=== PATIENT | female | born 1950 | race Caucasian/White ===

== ENCOUNTER → 2020-06-23 15:42 | Outpatient (CLI) | payer MEDICARE, OTHER, SELFPAY ==
--- NOTE | 2020-06-23 15:47 | DI.MRI.S_ITS ---
PROCEDURE: MR KNEE RT WO CON INDICATIONS: Unilateral primary osteoarthritis, right knee. RIGHT KNEE PAIN TECHNIQUE: Noncontrast sagittal PD fast spin echo and T2 fast spin echo with fat saturation, sagittal 3-D FLASH with fat saturation; coronal T1 spin echo and PD fast spin echo with fat saturation, and axial PD fast spin echo with fat saturation through the knee. COMPARISON: [facility], CR, XR KNEE 1 OR 2 VIEWS RIGHT, 04/12/2020, 11:01. [facility], CR, XR KNEE STANDING BILATERAL, 06/14/2020, 11:09. FINDINGS: Image quality: Excellent. Menisci: Vertically oriented linear high T2 signal intensity traverses the posterior horn medial meniscus, demonstrating superior and inferior articular surface extension. Amorphous high signal intensity within the medial meniscal body is present demonstrating inferior articular surface extension. Linear horizontally oriented high T2 signal intensity traverses the posterior horn lateral meniscus, demonstrating inferior articular surface extension. Cruciate ligaments: The anterior and posterior cruciate ligaments appear intact. Medial structures: The medial collateral ligament appears intact. Visualized portions of the pes anserinus tendons appear normal. No abnormal bursal fluid. Lateral structures: The lateral collateral ligament, long and short heads of the biceps femoris tendon appear intact. The popliteus tendon appears normal. Iliotibial band appears normal. Anterior structures: The quadriceps and patellar tendons appear intact. Patellar alignment is normal. No femoral trochlear dysplasia or ventral trochlear prominence. No edema in the infrapatellar fat pad. Bones and cartilage: No bone marrow contusions or fractures. Mild tricompartmental periarticular osteophyte formation. Moderate articular cartilage loss diffusely overlies the weight-bearing aspects of the medial femoral condyle and medial tibial plateau. Mild articular cartilage loss diffusely overlies the weight-bearing aspects of the lateral femoral condyle and lateral tibial plateau. Moderate articular cartilage loss overlies the patellar apex as well as the adjacent aspects of the medial and lateral patellar facets. Joint space: There is a small knee joint effusion and a trace Valdez's cyst. Normal appearing synovial plicae are incidentally noted. IMPRESSION: 1. Medial and lateral meniscal tearing. 2. Tricompartmental osteoarthritis with associated articular cartilage loss. 3. Small knee joint effusion and trace Valdez's cyst. Dictated by: Amy Pritchett M.D. on 06/23/2020 at 16:39 Approved by: Amy Pritchett M.D. on 06/23/2020 at 16:41
== END ==
PROVIDERS: PCP Family Medicine; Referring Provider Orthopaedic Surgery; Visit Provider Orthopaedic Surgery
DX: M17.11 Unilateral primary osteoarthritis, right knee (principal); S83.241A Other tear of medial meniscus, current injury, right knee, initial encounter; S83.281A Other tear of lateral meniscus, current injury, right knee, initial encounter; M25.461 Effusion, right knee
CPT/HCPCS: 73721

== ENCOUNTER → 2025-02-20 11:43 | Outpatient (CLI) | payer MEDICARE, OTHER, SELFPAY ==
[2025-02-20 12:54] LABS: Alanine Aminotransferase 25 IU/L (<35); Albumin 4.1 g/dL (3.5-5.0); Albumin Globulin Ratio 1.6 (1.0-2.8); Alkaline Phosphatase 85 U/L (38-126); Blood Urea Nitrogen 21 mg/dL (7-17); Calcium 9.5 mg/dL (8.4-10.2); Carbon Dioxide 29 mmol/L (22-32); Chloride 102 mmol/L (98-107); Cholesterol 174 mg/dL (140-199); Estimated Glomerular Filt Rate > 60 mL/min (>60); Globulin 2.6 g/dL (1.7-4.1); Glucose 81 mg/dL (70-99); HDL Cholesterol 58 mg/dL (40-60); HEMOLYSIS < 15 (0-50); Potassium 4.7 mmol/L (3.4-5.1); Sodium 139 mmol/L (137-145); Total Protein 6.7 g/dL (6.3-8.2); Triglycerides 52 mg/dL (35-150)
== END ==
PROVIDERS: PCP Family Medicine; Referring Provider Family Medicine; Visit Provider Family Medicine
DX: Z13.9 Encounter for screening, unspecified (principal); Z85.43 Personal history of malignant neoplasm of ovary; Z13.220 Encounter for screening for lipoid disorders
CPT/HCPCS: 36415; 80053; 80061; 86304

== ENCOUNTER 2025-03-03 14:17 | Emergency (ER) | payer MEDICARE, OTHER, SELFPAY ==
[2025-03-03] VITALS (10 sets, daily range): BP systolic 127–153; BP diastolic 67–81; PULSE 65–83; RESP 16–36; TEMP 36.9; O2SAT 96–100; BMI 25.2
--- NOTE | 2025-03-03 15:33 | ED.GENADULT ---
HPI - General Adult General Chief complaint: Abdominal Pain Stated complaint: Constipated for 14 days Time Seen by Provider: 03/03/25 14:20 Source: patient Mode of arrival: Ambulatory History of Present Illness HPI narrative: 74-year-old woman with a history of constipation has not had a significant bowel movement in 14 days increasing 5 lb of weight, abdominal distention. Symptoms seemed to worsen around June of this year to was taking Dulcolax daily and having modest bowel movements, she was seen to establish care with a primary care physician on February 20 recommendation was to change to MiraLax which she has been doing, 1 cap full b.i.d.. She finds that this is not been helpful. She feels that she is full but ?can not quite push it out? does not not feel like she has hard stool in her rectum. She notes that she has exacerbated a chronic hemorrhoid and is having some bleeding when small amounts of stool do pass. No nausea or vomiting. No change to medications. She notes that she tries to limit her caloric intake to 1500 calories because ?I am so short?. She does try to exercise, appropriate volumes of fluid, most recent colonoscopy was 3-[address] [facility] and she was told she did not need any further colonoscopies. Related Data Home Medications ?Medication ?Instructions ?Recorded ?Confirmed alendronate 70 mg tablet (Fosamax) 70 mg PO QWEEK ##0 09/17/17 02/20/25 cetirizine 10 mg tablet 10 mg PO QDAYP PRN ##0 09/17/17 02/20/25 triamterene 37.5 1 tab PO QDAY ##0 09/17/17 02/20/25 mg-hydrochlorothiazide 25 mg tablet citalopram 20 mg tablet 20 mg PO DAILY 02/20/25 02/20/25 phendimetrazine tartrate 35 mg 35 mg PO TID Appetite suppressant 02/20/25 02/20/25 tablet weight lo potassium chloride 10 mEq 10 meq PO BID Consistently low 02/20/25 02/20/25 tablet,extended release potassium Previous Rx's ?Medication ?Instructions ?Recorded linaclotide 72 mcg capsule 72 mcg PO DAILY #30 caps 03/03/25 (Linzess) peg 3350-electrolytes 236 240 ml PO Q10M #4,000 mL 03/03/25 gram-22.74 gram-6.74 gram-5.86 gram solution Allergies Allergy/AdvReac Type Severity Reaction Status Date / Time ampicillin (AMPICILLIN) Allergy Unknown Verified 03/03/25 15:09 azithromycin (From ZITHROMAX) Allergy Unknown Verified 03/03/25 15:09 hydrocodone (From VICODIN) Allergy Unknown Verified 03/03/25 15:09 prochlorperazine (From Allergy Unknown Verified 03/03/25 15:09 COMPAZINE) acetaminophen (From Vicodin) AdvReac Verified 03/03/25 15:09 Patient History Medical History (Updated 03/03/25 @ 19:18 by Palak Astorga MD) Insomnia Hx of ovarian cancer Osteoporosis Depression (02/16/79) Carpal tunnel syndrome Surgical History (Updated 02/24/25 @ 08:52 by Kierra Mason MD) Hx of total knee replacement (11/17/19) [place] teeth removed (06/18/74) History of hysterectomy (10/15/17) History of cholecystectomy (03/17/87) History of section (08/17/76) Social History (Updated 02/24/25 @ 08:51 by Kierra Mason MD) marital status: household members: spouse lives independently: Yes caregiver/support person: No housing: house seatbelt use: always Exam Initial Vital Signs Initial Vital Signs: Vital Signs Temperature 98.4 F 03/03/25 15:08 Pulse Rate 83 03/03/25 15:08 Respiratory Rate 18 03/03/25 15:08 Blood Pressure 129/67 03/03/25 15:08 Pulse Oximetry 100 03/03/25 15:08 Oxygen Delivery Method Room Air 03/03/25 15:08 General: Healthy appearing, in no acute distress. Able to give a complete and coherent history. Well-nourished well-developed HEENT: Moist mucous membranes, normal sclera with reactive pupils, Respiratory: Lungs are clear to auscultation, no wheezing no rales no rhonchi. Full and symmetrical air movement Cardiac: Regular rate and rhythm no murmurs no bruits Abdomen: Soft, mild distention no rebound or guarding, no flank pain Skin: Warm and dry, no rashes Neurologic: Grossly neurologically intact with no obvious asymmetries or abnormalities Extremities: No trauma, well perfused Psych: Cooperative, appropriate insight and affect Course Orders Ordered: ED Orders 03/03/25 15:29 Complete Blood Count AUTO DIFF Stat Comprehensive Metabolic Panel Stat Lipase Stat Urinalysis and Microscopic Stat 03/03/25 15:31 EKG-12 Lead Stat 03/03/25 15:59 CT abdomen pelvis w con Stat Vital Signs Vital signs: Vital Signs - 8 hr 03/03/25 15:08 03/03/25 16:13 03/03/25 16:14 Temperature 98.4 F Pulse Rate 83 65 66 Respiratory Rate 18 21 19 Blood Pressure 129/67 Pulse Oximetry 100 99 98 Oxygen Delivery Method Room Air 03/03/25 16:14 03/03/25 16:30 03/03/25 16:31 Temperature Pulse Rate 67 65 Respiratory Rate 27 H 27 H Blood Pressure 141/68 H Pulse Oximetry 97 98 Oxygen Delivery Method 03/03/25 16:31 03/03/25 17:09 03/03/25 17:09 Temperature Pulse Rate 67 Respiratory Rate 16 Blood Pressure 127/70 135/81 Pulse Oximetry 96 Oxygen Delivery Method 03/03/25 17:30 03/03/25 17:30 03/03/25 18:00 Temperature Pulse Rate 66 70 Respiratory Rate 19 36 H Blood Pressure 153/72 H Pulse Oximetry 96 98 Oxygen Delivery Method 03/03/25 18:00 Temperature Pulse Rate Respiratory Rate Blood Pressure 135/69 Pulse Oximetry Oxygen Delivery Method Medical Decision Making Lab Data 03/03/25 15:29 03/03/25 15:29 Labs: Lab Results 03/03/25 Range/Units 15:29 WBC 5.4 (4.5-11.0) X10^3/uL RBC 4.31 (4.0-5.2) X10^6/uL Hgb 13.1 (12.0-16.0) g/dL Hct 38.5 (36-46) % MCV 89.3 (80-100) fL MCH 30.5 (26-34) PG MCHC 34.2 (30-36) % RDW 13.1 (11.6-14.8) % Plt Count 148 L (150-400) X10^3/uL Neut % (Auto) 73.3 (50-75) % Lymph % (Auto) 20.0 L (25-40) % [place] % (Auto) 6.1 (3-14) % Eos % (Auto) 0.0 L (2-4) % Baso % (Auto) 0.6 (0-2) % Neut # (Auto) 4000 (5592-7960) /uL Lymph # (Auto) 1100 (2794-6216) /uL [place] # (Auto) 300 (0-900) /uL Eos # (Auto) 0 (0-450) /uL Baso # (Auto) 0 (0-100) /uL Sodium 137 (137-145) mmol/L Potassium 3.4 (3.4-5.1) mmol/L Chloride 101 (98-107) mmol/L Carbon Dioxide 30 (22-32) mmol/L BUN 24 H (7-17) mg/dL Creatinine 0.72 (0.52-1.04) mg/dL Estimated GFR > 60 (>60) mL/min BUN/Creatinine Ratio 33.3 H (6-22) Glucose 89 (70-99) mg/dL Calcium 9.3 (8.4-10.2) mg/dL Total Bilirubin 1.1 (0.2-1.3) mg/dL AST 59 H (14-36) IU/L ALT 23 (<35) IU/L Alkaline Phosphatase 74 (38-126) U/L Total Protein 7.3 (6.3-8.2) g/dL Albumin 4.2 (3.5-5.0) g/dL Globulin 3.1 (1.7-4.1) g/dL Albumin/Globulin Ratio 1.4 (1.0-2.8) Lipase 207 (23-300) U/L Urine Color Yellow Urine Appearance Clear Urine pH 7.0 (4.5-8.0) Ur Specific [place] 1.010 (1.000-1.035) Urine Protein Negative (Negative) Urine Glucose (UA) Negative (Negative) g/dL Urine Ketones Negative (NEGATIVE) Urine Occult Blood Negative (Negative) Urine Nitrate Negative (Negative) Urine Bilirubin Negative (NEGATIVE) Urine Urobilinogen 1.0 (0.2) E.U./dL Ur Leukocyte Esterase Negative (NEGATIVE) Urine RBC 0-1/hpf (0-5/HPF) Urine WBC 0-1/hpf (0-5/HPF) Ur Squamous Epith Cells 0-1 /hpf (0-5/HPF) Urine Bacteria None seen (None) Ur Culture Indicated? Cult not indicated Vol Urine Centrifuged 10ml (spun) Imaging Data CT scan - abdomen/pelvis: Radiologist's Impression: PROCEDURE: CT ABDOMEN PELVIS W CON INDICATIONS: Minimal bowel movement times 14 days increasing abdominal pa TECHNIQUE: After the administration of intravenous contrast, axial sections acquired from the lung bases to the pubic symphysis. Coronal and sagittal reformats were performed. For radiation dose reduction, the following was used: automated exposure control, adjustment of mA and/or kV according to patient size. COMPARISON: [facility], CT, IVP (ABD & PEL WWO CONTRAST), 09/11/2017, 10:52. FINDINGS: Image quality: Diagnostic. Lower Chest: No significant findings. ABDOMEN: Liver: No solid mass. Gallbladder: Absent Biliary ducts: Nondilated. Air is present in the biliary tree consistent with previous manipulation of the sphincter of odontoid. Gas was present on the previous study from 2018. It is typically an asymptomatic incidental finding. Pancreas: No ductal dilation. Spleen: Size is within normal limits. Adrenal Glands: No adrenal nodules. Kidneys and Ureters: No hydronephrosis. No solid mass. No complex renal cystic lesion which requires follow up. Stomach and Bowel: Although no obvious constricting lesion is present, the rectum through the sigmoid are normal in caliber, and then the colon becomes quite distended and filled with a large amount of fecal debris. Small bowel is nondilated. There is a small bowel anastomotic suture line noted. Peritoneum: No abnormal intraperitoneal fluid. No free air. Ventral Wall: No significant ventral hernia. Abdominal Nodes: No retroperitoneal or mesenteric adenopathy by size criteria. Vessels: Aorta and inferior vena cava are normal in size. PELVIS: Pelvic Organs: Uterus is surgically absent. No adnexal masses. Bladder: No bladder wall thickening, accounting for underdistention. Pelvic Nodes: No enlarged lymph nodes. Miscellaneous: No inguinal hernias are seen. Bones: No aggressive osseous abnormality. IMPRESSION: Most of the colon is quite distended and filled with a large amount of fecal debris. The sigmoid and rectum are decompressed. No obvious lesion is identified. If this patient has not had relatively recent colonoscopy, would recommend nonemergent colonoscopy after decompressing the very large stool load. Remote cholecystectomy and chronic air in the biliary tree. Dictated by: Jono Alex M.D. on 03/03/2025 at 16:24 Discharge Plan Departure Patient Disposition: Home Clinical Impression: Constipation Qualifiers: Constipation type: unspecified constipation type Qualified Code(s): K59.00 - Constipation, unspecified Instructions: DI for Constipation Activity Restrictions/Additional Instructions: Thank you for coming in today The CT scan we did have your abdomen shows significant amount of stool on the right side of your colon but no other obvious abnormalities We discussed bowel prep options as an option to clean out the constipation. You wanted to try the pill option but I was unable to find pill preparation that has not been discontinued I have sent a prescription for the 4 L electrolyte solution as well as Linzess to [facility] in [place] Please do drank the electrolyte solution until you get to essentially clear stool coming out. You can stop at that point I would recommend trying Linzess daily to try and help constipation and using as much MiraLax as you need daily to have regular stools. You do need to follow up with your primary care physician If you find that you are getting worse or develop any new symptoms, please feel free to return to the emergency department for further evaluation. Prescriptions: New peg 3350-electrolytes 236-22.74-6.74 -5.86 gram recon soln 240 ml PO Q10M Qty: 4000 2RF Rx Instructions: until fecal effluent is clear Linzess 72 mcg capsule 72 mcg PO DAILY Qty: 30 0RF No Action potassium chloride 10 mEq tablet extended release 10 meq PO BID phendimetrazine tartrate 35 mg tablet 35 mg PO TID citalopram 20 mg tablet 20 mg PO DAILY alendronate [Fosamax] 70 MG tablet 70 mg PO QWEEK Qty: 0 triamterene-hydrochlorothiazid 37.5 MG/25 MG tablet 1 tab PO QDAY Qty: 0 cetirizine 10 MG tablet 10 mg PO QDAYP PRNQty: 0 Referrals: Kierra Mason MD [Primary Care Provider, Family Practice] Stand Alone Forms: Patient Portal/API
[2025-03-03 15:55] LABS: Add Manual Diff / Slide Review NO; Hematocrit 38.5 % (36-46); Hemoglobin 13.1 g/dL (12.0-16.0); Lymphocytes Absolute Auto 1100 /uL (1100-4500); Mean Corpuscular HGB Conc 34.2 % (30-36); Mean Corpuscular Hemoglobin 30.5 PG (26-34); Mean Corpuscular Volume 89.3 fL (80-100); Platelet Count 148 X10^3/uL (150-400)
--- NOTE | 2025-03-03 15:59 | DI.CT.S_ITS ---
PROCEDURE: CT ABDOMEN PELVIS W CON INDICATIONS: Minimal bowel movement times 14 days increasing abdominal pa TECHNIQUE: After the administration of intravenous contrast, axial sections acquired from the lung bases to the pubic symphysis. Coronal and sagittal reformats were performed. For radiation dose reduction, the following was used: automated exposure control, adjustment of mA and/or kV according to patient size. COMPARISON: [facility], CT, IVP (ABD & PEL WWO CONTRAST), 09/11/2017, 10:52. FINDINGS: Image quality: Diagnostic. Lower Chest: No significant findings. ABDOMEN: Liver: No solid mass. Gallbladder: Absent Biliary ducts: Nondilated. Air is present in the biliary tree consistent with previous manipulation of the sphincter of odontoid. Gas was present on the previous study from 2018. It is typically an asymptomatic incidental finding. Pancreas: No ductal dilation. Spleen: Size is within normal limits. Adrenal Glands: No adrenal nodules. Kidneys and Ureters: No hydronephrosis. No solid mass. No complex renal cystic lesion which requires follow up. Stomach and Bowel: Although no obvious constricting lesion is present, the rectum through the sigmoid are normal in caliber, and then the colon becomes quite distended and filled with a large amount of fecal debris. Small bowel is nondilated. There is a small bowel anastomotic suture line noted. Peritoneum: No abnormal intraperitoneal fluid. No free air. Ventral Wall: No significant ventral hernia. Abdominal Nodes: No retroperitoneal or mesenteric adenopathy by size criteria. Vessels: Aorta and inferior vena cava are normal in size. PELVIS: Pelvic Organs: Uterus is surgically absent. No adnexal masses. Bladder: No bladder wall thickening, accounting for underdistention. Pelvic Nodes: No enlarged lymph nodes. Miscellaneous: No inguinal hernias are seen. Bones: No aggressive osseous abnormality. IMPRESSION: Most of the colon is quite distended and filled with a large amount of fecal debris. The sigmoid and rectum are decompressed. No obvious lesion is identified. If this patient has not had relatively recent colonoscopy, would recommend nonemergent colonoscopy after decompressing the very large stool load. Remote cholecystectomy and chronic air in the biliary tree. Dictated by: Jono Alex M.D. on 03/03/2025 at 16:24 Approved by: Jono Alex M.D. on 03/03/2025 at 16:30
--- NOTE | 2025-03-03 16:04 | EKG_ITS ---
[address] [address] Test Date: 2025-03-03 Pat Name: Trice Bermudez Department: Room: Gender: Female Mail Messenger: SHYANNE : 1950 Requested By: Order Number: [id number] Reading MD: Fran Dewitt MD Measurements Intervals [place] Rate: 70 P: 36 MS: 184 QRS: -29 QRSD: 142 T: 20 QT: 458 QTc: 494 Interpretive Statements Normal sinus rhythm Right bundle branch block NO PRIOR TRACING Electronically Signed On 03-03-2025 17:15:54 PDT by Fran Dewitt MD
[2025-03-03 16:10] LABS: Alanine Aminotransferase 23 IU/L (<35); Albumin 4.2 g/dL (3.5-5.0); Albumin Globulin Ratio 1.4 (1.0-2.8); Alkaline Phosphatase 74 U/L (38-126); Blood Urea Nitrogen 24 mg/dL (7-17); Calcium 9.3 mg/dL (8.4-10.2); Carbon Dioxide 30 mmol/L (22-32); Chloride 101 mmol/L (98-107); Estimated Glomerular Filt Rate > 60 mL/min (>60); Globulin 3.1 g/dL (1.7-4.1); Glucose 89 mg/dL (70-99); HEMOLYSIS < 15 (0-50); Lipase 207 U/L (23-300); Potassium 3.4 mmol/L (3.4-5.1); Sodium 137 mmol/L (137-145); Total Protein 7.3 g/dL (6.3-8.2)
[2025-03-03 17:09] LABS: Appearance Urine UA CLEAR; Bilirubin Urine UA NEGATIVE (NEGATIVE); Color Urine UA YELLOW; Glucose Urine UA NEGATIVE (Negative); Ketones Urine UA NEGATIVE (NEGATIVE); Leukocyte Esterase Urine UA NEGATIVE (NEGATIVE); Nitrite Urine UA NEGATIVE (Negative); Occult Blood Urine UA NEGATIVE (Negative); Protein Urine UA NEGATIVE (Negative); Specific Gravity Urine UA 1.010 (1.000-1.035); Urobilinogen Urine UA 1.0 E.U./dL (0.2)
[2025-03-03 17:12] LABS: pH Urine UA 7.0 (4.5-8.0)
[2025-03-03 17:15] LABS: Culture Indicated Urine Cult Not Indicated
== END 2025-03-03 19:32 | disposition home or self-care (01) ==
PROVIDERS: Emergency Provider Emergency Medicine; PCP Family Medicine
DX: K59.00 Constipation, unspecified (principal); R14.0 Abdominal distension (gaseous)
CPT/HCPCS: 36415; 74177; 80053; 81001; 83690; 85025; 93005; 93010; 99283; 99284; Q9967